=== PATIENT | male | born 1950 | race Caucasian/White ===

== ENCOUNTER → 2017-03-02 | Outpatient (CLI) | payer OTHER ==
[~2017-03-02] MED LIST: PRINIVIL20 MG PO; ZANTAC 150MG T150 MG PO
--- NOTE | ~2017-03-02 | EKG ---
[place] [address] [facility] [place] [address] ELECTROCARDIOGRAM REPORT Name: SUZAN KUMAR Room #: [facility]#: [id number] Admission: 03/02/17 Attend Phys: Santy Kahn MD Discharge: Date of : 46 Report #: [id number] THIS REPORT FOR: //name// [facility] Test Date: 2017-03-02 Test Time: 15:06:01 Pat Name: SUZAN KUMAR Department: Room: Gender: M Denitrator: Demetria BARNES : 1950 Requested By: Santy Kahn Order Number: [id number] MD: Renato Renee Measurements Intervals [place] Rate: 66 P: -3 [place]: 191 QRS: 0 QRSD: 118 T: 10 QT: 394 QTc: 413 Interpretive Statements Sinus rhythm Incomplete right bundle branch block No previous ECG available for comparison Electronically Signed On 03-03-2017 7:47:23 CDT by Renato Renee [email or web address] <ELECTRONICALLY SIGNED> By: Renato Renee MD, [facility] 03/03/17 0747 [id number] Renato Renee MD, FACC /EPI
== END ==
LOC: LITH 06:46
DX: N13.5 Crossing vessel and stricture of ureter without hydronephrosis (principal); Z53.8 Procedure and treatment not carried out for other reasons; I10 Essential (primary) hypertension; G47.33 Obstructive sleep apnea (adult) (pediatric); F32.9 Major depressive disorder, single episode, unspecified; K21.9 Gastro-esophageal reflux disease without esophagitis